=== PATIENT | male | born 1965 | race American Indian/Alaskan Native ===

== ENCOUNTER 2020-10-16 06:42 | Day surgery (SDC) | payer MEDICARE ==
[2020-10-16] MEDS ORDERED: ASPIRIN EC 325 MG TAB PO SCH (07:06)
[2020-10-16 07:07] LABS: Basophils # (Auto) 0.1 K/mm3 (0.0-0.1); Basophils % (Auto) 0.9 % (0.0-1.8); Eosinophils # (Auto) 0.1 K/mm3 (0.0-0.4); Eosinophils % (Auto) 1.6 % (0.0-4.3); Hematocrit 40.8 % (35.5-45.6); Lymphocytes # (Auto) 0.8 K/mm3 (1.2-5.4); Lymphocytes % (Auto) 12.4 % (13.4-35.0); Mean Corpuscular HGB Conc 32 % (32-34); Mean Corpuscular Volume 91 fl (84-94); Monocytes # (Auto) 0.6 K/mm3 (0.0-0.8); Monocytes % (Auto) 9.7 % (0.0-7.3); Red Blood Count 4.46 M/mm3 (3.65-5.03)
[2020-10-16 07:08] LABS: Platelet Count 84 K/mm3 (140-440); Red Cell Distribution Width 22.4 % (13.2-15.2)
[2020-10-16 07:17] LABS: Calcium 9.8 mg/dL (8.4-10.2)
[2020-10-16 07:18] LABS: INR 1.24 (0.87-1.13)
[2020-10-16] MEDS ORDERED: HEPARIN 10,000 UNITS/10 ML VIAL ONE (07:32)
[2020-10-16] MEDS ORDERED: MIDAZOLAM 2 MG/2 ML INJ ONE (07:32)
[2020-10-16] MEDS ORDERED: HEPARIN/NS 5000 UNIT/500ML 1,000 ML IR ONE (07:32)
[2020-10-16] MEDS ORDERED: VERAPAMIL 5 MG/2 ML INJ ONE (07:32)
[2020-10-16] MEDS ORDERED: NITROGLYCERIN SYRINGE 0 ML ONE (07:33)
[2020-10-16] MEDS: SODIUM CHLORIDE 0.9% 500 ML 500 ML IV SCH ×2 (07:54→08:23)
[2020-10-16] MEDS: fentaNYL 100 MCG/2 ML INJ ONE ×2 (08:24→08:30)
[2020-10-16] MEDS: LIDOCAINE (2%) 20 MG/1 ML VIAL 20 ML MDV INFILTRATI ONE ×2 (08:26→08:27)
[2020-10-16] MEDS ORDERED: hydrALAZINE 20 MG/1 ML INJ IV NR (09:44)
--- NOTE | 2020-10-16 09:48 | Cardiac Catherization Report ---
HISTORY: The patient is a 55-year-old male with multiple medical problems including history of hypertension, diabetes and end-stage renal disease. He has had congestive heart failure and workup has revealed a dilated cardiomyopathy with significant mitral regurgitation. Given his risk factors for coronary artery disease, coronary angiography was recommended. PROCEDURE: Left heart catheterization, ventriculography, and coronary angiography via the right femoral artery using 5-Nepali Jose catheters and a pigtail catheter. An 8-Nepali sheath was placed in the right femoral vein as well. A [place]-Sandrita catheter was used to measure right heart pressures, wedge pressure, saturations, and vascular resistance. COMPLICATIONS: None. PREPROCEDURE DIAGNOSES: Dilated cardiomyopathy, mitral regurgitation, pulmonary hypertension. POSTPROCEDURE DIAGNOSES: Dilated cardiomyopathy, mitral regurgitation, moderate pulmonary hypertension, mild coronary artery disease. TISSUE SAMPLES: None. ESTIMATED BLOOD LOSS: 10-20 mL. SEDATION: Intravenous Versed and fentanyl, which were administered by the nurse under doctor supervision. HEMODYNAMIC RESULTS: Left ventricular pressure 145/16 with an end-diastolic pressure of 28. Central aortic pressure 147/101. Pulmonary capillary wedge pressure mean of 32 with 7 mmHg V wave. Mean right atrial pressure 32, right ventricular pressure 62/18 with a mean of 34. Pulmonary artery pressure 59/36 with a mean of 47. Santhosh cardiac output 4.45 liters per minute. Santhosh cardiac index 2.28. Pulmonary vascular resistance 237. Systemic vascular resistance 1530. Femoral artery saturation 95%, pulmonary artery saturation mean of 66. SVC saturation mean of 62. ANGIOGRAPHIC RESULTS: 1. Left ventricle: The ventriculogram reveals left ventricular enlargement with severe global left ventricular dysfunction. The ejection fraction is approximately 15-20%. There appears to be severe mitral regurgitation. 2. Right coronary artery: The right coronary artery is a dominant vessel and it is diffusely irregular and has moderate calcification. The proximal portion has a 20% stenosis. The ostium of the PDA branch has a 40% stenosis. The ostium of the first posterolateral branch has a 40% stenosis. 3. Left coronary artery: This is a large caliber vessel, which is diffusely irregular and has moderate calcification. The mid LAD contains 40% stenosis. FINAL IMPRESSION: 1. Severe dilated cardiomyopathy with congestive heart failure. 2. Mitral regurgitation, which is probably severe. 3. Moderate pulmonary hypertension. 4. Relatively mild coronary artery disease. PLAN: In addition to medical therapy, consider ICD placement. Consider mitral valve clip, repair or mitral valve replacement. JOB# [id number] APOLLO/NTS
[2020-10-16] MEDS ORDERED: traMADol 50 MG TAB PO PRN (09:53)
[2020-10-16] MEDS ORDERED: HYDROcodone/ACETAMINOPHEN 5-325 MG TAB PO PRN (09:53)
--- NOTE | 2020-10-16 09:57 | Discharge Summary ---
Short Stay Discharge Plan Activity: advance as tolerated Weight Bearing Status: Full Weight Bearing Diet: low fat, low cholesterol, low salt Wound: keep clean and dry Special Instructions: no heavy lifting (x 48 hours) Additional Instructions: I saw this pt & agree with the Dx & Tx plan. Follow up with: ISAEL VALLADARES MD [Primary Care Provider] - 7 Days Forms: [facility] PCI D/C Instructions
--- NOTE | 2020-10-16 11:34 | Cardiac Catherization Report ---
ADDENDUM PROCEDURE START TIME: 8:24 a.m. PROCEDURE END TIME: 8:59 a.m. SEDATION TIME: 35 minutes. JOB# [id number] APOLLO/WILLIAM
[2020-10-16 14:01] VITALS: BP 149/95
== END 2020-10-16 14:30 | disposition home or self-care (01) ==
LOC: CATHLABREC 06:42
PROVIDERS: ATTEND Internal Medicine
DX: I42.0 Dilated cardiomyopathy (principal); I27.20 Pulmonary hypertension, unspecified; I34.0 Nonrheumatic mitral (valve) insufficiency; I25.10 Atherosclerotic heart disease of native coronary artery without angina pectoris; I13.2 Hypertensive heart and chronic kidney disease with heart failure and with stage 5 chronic kidney disease, or end stage renal disease; N18.6 End stage renal disease; I50.9 Heart failure, unspecified; E11.22 Type 2 diabetes mellitus with diabetic chronic kidney disease; F17.210 Nicotine dependence, cigarettes, uncomplicated; Z98.42 Cataract extraction status, left eye; Z79.899 Other long term (current) drug therapy; Z79.82 Long term (current) use of aspirin; Z98.41 Cataract extraction status, right eye; Z99.2 Dependence on renal dialysis; Z98.890 Other specified postprocedural states; Z83.3 Family history of diabetes mellitus; Z82.49 Family history of ischemic heart disease and other diseases of the circulatory system; Z86.2 Personal history of diseases of the blood and blood-forming organs and certain disorders involving the immune mechanism
CPT/HCPCS: 36415; 80048; 85025; 85610; 85730; 93005; 93460; 99156; 99157; C1769; J0360; J1644; J2250; J3010; J7040; Q9967